=== PATIENT | male | born 1990 | race Hispanic/Latino ===

== ENCOUNTER 2018-12-15 17:16 | Inpatient (IN) | payer MEDICAID ==
[2018-12-15 17:27] VITALS: BMI 25.1
--- NOTE | 2018-12-15 18:20 | C.PDOC ---
History Of Present Illness 28 y/o male presents to the ED requesting detox from heroin. Of note patient was transferred from another institution that does not have detox units. He has no medical complaints at this time. Last heroin use was 36 hours ago. Currently patient feels he is withdrawing and he reports diffuse bodyaches. No SI or HI. <Joanna Pedraza - Last Filed: 12/15/18 18:54> History Per: Patient History/Exam Limitations: no limitations Onset/Duration Of Symptoms: Days Current Symptoms Are (Timing): Still Present Modifying Factor(s): Other (Heroin) Associated Symptoms: denies: Suicidal Thoughts, Suicidal Plan <Joanna Pedraza - Last Filed: 12/15/18 18:54> <Jett Thomas - Last Filed: 12/15/18 19:16> Time Seen by Provider: 12/15/18 17:34 Chief Complaint (Nursing): Substance Abuse Past Medical History Reviewed: Historical Data, Nursing Documentation, Vital Signs - Medical History Other PMH: Tonsillar abscess s/p I&D Family History: States: Unknown Family Hx - Social History Hx Alcohol Use: No Hx Substance Use: Yes - Immunization History Hx Tetanus Toxoid Vaccination: No Hx Influenza Vaccination: No <Joanna Pedraza - Last Filed: 12/15/18 18:54> Vital Signs: Last Vital Signs Temp 98.7 F 12/15/18 18:35 Pulse 74 12/15/18 18:35 Resp 18 12/15/18 18:35 BP 141/89 12/15/18 18:35 Pulse Ox 98 12/15/18 18:35 <Jett Thomas - Last Filed: 12/15/18 19:16> Review Of Systems Except As Marked, All Systems Reviewed And Found Negative. Constitutional: Negative for: Fever, Chills Cardiovascular: Negative for: Chest Pain, Palpitations Respiratory: Negative for: Shortness of Breath Gastrointestinal: Negative for: Vomiting, Abdominal Pain Musculoskeletal: Positive for: Other (Generalized body aches) Neurological: Negative for: Weakness, Dizziness Psych: Positive for: Withdrawal, Other (Heroin dependence). Negative for: Suicidal ideation <Joanna Pedraza - Last Filed: 12/15/18 18:54> Physical Exam - Physical Exam Appears: Non-toxic, No Acute Distress Skin: Warm, Dry, No Diaphoretic Head: Atraumatic, Normacephalic Eye(s): bilateral: Normal Inspection, PERRL, EOMI Neck: Normal ROM Chest: Symmetrical Cardiovascular: Rhythm Regular, No Murmur Respiratory: Normal Breath Sounds, No Accessory Muscle Use Gastrointestinal/Abdominal: Soft, No Tenderness, No Distention Extremity: Bilateral: Atraumatic, Normal Color And Temperature Neurological/Psych: Oriented x3 Gait: Steady <Joanna Pedraza - Last Filed: 12/15/18 18:54> ED Course And Treatment - Laboratory Results Result Diagrams: 12/15/18 18:21 12/15/18 18:21 Progress Note: 0.1 mg PO clonidine given in the ED. Labs ordered for medical clearance. 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 <Joanna Pedraza - Last Filed: 12/15/18 18:54> - Laboratory Results Result Diagrams: 12/15/18 18:21 12/15/18 18:21 Lab Results: Total Bilirubin 0.8 mg/dL (0.2-1.3) 12/15/18 18:21 AST 36 U/L (17-59) 12/15/18 18:21 ALT 59 U/L (21-72) 12/15/18 18:21 Alkaline Phosphatase 99 U/L (38-126) 12/15/18 18:21 Total Protein 8.6 g/dL (6.3-8.3) H 12/15/18 18:21 Albumin 4.4 g/dL (3.5-5.0) 12/15/18 18:21 Globulin 4.2 gm/dL (2.2-3.9) H 12/15/18 18:21 Albumin/Globulin Ratio 1.1 (1.0-2.1) 12/15/18 18:21 Urine Color Yellow (YELLOW) 12/15/18 18:21 Urine Clarity Hazy (Clear) 12/15/18 18:21 Urine pH 8.0 (5.0-8.0) 12/15/18 18:21 Ur Specific Orange 1.017 (1.003-1.030) 12/15/18 18:21 Urine Protein Negative mg/dL (NEGATIVE) 12/15/18 18:21 Urine Glucose (UA) Normal mg/dL (Normal) 12/15/18 18:21 Urine Ketones Negative mg/dL (NEGATIVE) 12/15/18 18:21 Urine Blood Negative (NEGATIVE) 12/15/18 18:21 Urine Nitrate Negative (NEGATIVE) 12/15/18 18:21 Urine Bilirubin Negative (NEGATIVE) 12/15/18 18:21 Urine Urobilinogen Normal mg/dL (0.2-1.0) 12/15/18 18:21 Ur Leukocyte Esterase Neg Mary/uL (Negative) 12/15/18 18:21 Urine WBC (Auto) 4 /hpf (0-5) 12/15/18 18:21 Urine RBC (Auto) 6 /hpf (0-3) H 12/15/18 18:21 Amorphous Sediment Moderate /ul (<OCC) H 12/15/18 18:21 <Jett Thomas - Last Filed: 12/15/18 19:16> Disposition - Disposition Disposition Time: 19:00 <Joanna Pedraza - Last Filed: 12/15/18 18:54> Discussed With Dr.: Dori Valladares Comment: accepted the pt on her service and took over the care at 7:15PM Doctor Will See Patient In The: Hospital Counseled Patient/Family Regarding: Studies Performed, Diagnosis <Jett Thomas - Last Filed: 12/15/18 19:16> - Disposition Disposition: HOSPITALIZED Condition: FAIR Forms: [facility] (Sinhala) - Clinical Impression Clinical Impression: Drug abuse, Drug dependence - PA / VARNISH COOKER / Resident Statement MD/DO has reviewed & agrees with the documentation as recorded. - Scribe Statement The provider has reviewed the documentation as recorded by the Scribshiloh Gil All medical record entries made by the Scribe were at my direction and personally dictated by me. I have reviewed the chart and agree that the record accurately reflects my personal performance of the history, physical exam, medical decision making, and the department course for this patient. I have also personally directed, reviewed, and agree with the discharge instructions and disposition. <Joanna Pedraza - Last Filed: 12/15/18 18:54> Physician Patient Turnover Patient Signed Over To: Jett Thomas Handoff Comments: pending UDS and medical clearance and detox acceptence <Joanna Pedraza - Last Filed: 12/15/18 18:54> Decision To Admit <Joanna Pedraza - Last Filed: 12/15/18 18:54> - Pt Status Changed To: Hospital Disposition Of: Inpatient - Admit Certification Admit to Inpatient:: After my assessment, the patient will require hospitalization for at least two midnights. This is because of the severity of symptoms shown, intensity of services needed, and/or the medical risk in this patient being treated as an outpatient. - InPatient: Physician Admission Certification: I certify that this patient requires 2 or more midnights of care for the following reason:: After my assessment, the patient will require hospitalization for at least two midnights. This is becaus e of the severity of symptoms shown, intensity of services needed, and/or the medical risk in this patient being treated as an outpatient. - . Bed Request Type: Detox Admitting Physician: Dori Valladares <Jett Thomas - Last Filed: 12/15/18 19:16> - . Patient Diagnosis: Drug abuse, Drug dependence
[2018-12-15 18:25] LABS: BASO # 0.1 K/uL (0.0-0.2); BASO % 0.9 % (0.0-2.0); EOS # 0.2 K/uL (0.0-0.7); EOS % 1.3 % (0.0-4.0); HEMOGLOBIN 15.7 g/dL (12.0-18.0); LYMPH # 3.8 K/uL (1.0-4.3); LYMPH % 25.7 % (20.0-40.0); MEAN CELL VOLUME 87.1 fL (80.0-94.0); MEAN CORPUSCULAR HEMOGLOBIN 30.2 pg (27.0-31.0); MEAN CORPUSCULAR HGB CONC 34.7 g/dL (33.0-37.0); MEAN PLATELET VOLUME 9.2 fL (7.2-11.7); MONO # 1.2 K/uL (0.0-0.8); NEUT # 9.4 K/uL (1.8-7.0); NEUT % 64.1 % (50.0-75.0); NRBC % 0.1 % (0.0-2.0); RBC 5.21 Mil/uL (4.40-5.90); RED CELL DISTRIBUTION WIDTH 13.2 % (11.5-14.5); WHITE BLOOD COUNT 14.8 K/uL (4.8-10.8)
[2018-12-15 18:40] LABS: URINE AMORPHOUS SEDIMENT MODERATE /ul (<OCC); URINE BILIRUBIN NEGATIVE (NEGATIVE); URINE BLOOD NEGATIVE (NEGATIVE); URINE CLARITY Hazy (Clear); URINE COLOR Yellow (YELLOW); URINE GLUCOSE (UA) NORMAL (Normal); URINE LEUKOCYTE ESTERASE NEG Leu/uL (Negative); URINE PROTEIN NEGATIVE (NEGATIVE); URINE UROBILINOGEN NORMAL mg/dL (0.2-1.0)
[2018-12-15 18:41] LABS: ALB/GLOB RATIO 1.1 (1.0-2.1); ALBUMIN 4.4 g/dL (3.5-5.0); ALT/SGPT 59 U/L (21-72); AST/SGOT 36 U/L (17-59); BLOOD UREA NITROGEN 9 mg/dL (9-20); CALCIUM 9.6 mg/dl (8.6-10.4); GFR NON-AFRICAN AMERICAN > 60
[2018-12-15 18:54] LABS: BARBITURATES, UR NEGATIVE (NEGATIVE); OPIATES, UR NEGATIVE (NEGATIVE); PHENCYCLIDINE, UR NEGATIVE (NEGATIVE)
[2018-12-15 18:56] LABS: BENZODIAZEPINES, UR POSITIVE (NEGATIVE)
[2018-12-16] MEDS ORDERED: Aluminum Hydroxide/Magnesium Hydroxide Susp (30 mL) PO PRN (08:36)
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
--- NOTE | 2018-12-17 10:24 | PCM.PYCHPN ---
Psychiatric Progress Note - Psychiatric Progress Note Patient seen today, length of contact: 17 min Patient Chief Complaint: I want detox Problems Identified/Issues Discussed: Patient seen, chart reviewed and case discussed with staff Patient is compliant with all medications, reports no side effects Symptoms are improving and still needs additional time to stabilize Patient reports racing thoughts at night with difficulty falling asleep Patient reports feelings of guilt regarding past behaviors, denies SI Patient attends groups and activities Support and psycho-education provided After care discussed Medication Change: Yes Medical Record Reviewed: Yes Mental Status Examination - Cognitive Function Orientation: Person, Place, Situation, Time Memory: Intact Attention: WNL - Mood Mood: Anxious - Affect Affect: Constricted - Speech Speech: Appropriate - Formal Thought Process Formal Thought Process: No Impairment - Suicidal Ideation Suicidal Ideation: No - Homicidal Ideation Homicidal Ideation: No Goal/Treatment Plan - Goal/Treatment Plan Need for Continued Stay: Remain at risks for inpatient hospitalization, Severe depression anxiety, Discharge may exacerbated symptoms Progress Toward Problem(s) and Goals/Treatment Plan: Taper with Methadone PRN medications, Maalox, Clonidine, Atarax, Ibuprofen, Imodium, Zofran Trazodone HS, increased from 50-->100mg All risks, benefits and treatment alternatives of medications discussed; patient understands and agrees Attend groups and activities Supportive therapy and psycho-education [place] for abstinence CBT for relapse prevention Encourage MAT Refer to rehab or IOP, and self-help groups Teach healthy lifestyle methods(diet, exercise, meditation) Smoking cessation with Nicotine patch Discussed with Dr. Jacinto Alexander, PGY-1
--- NOTE | 2018-12-17 13:50 | PCM.BM ---
<AdrianYuly fernandez Regi - Last Filed: 12/17/18 13:45> Treatment Plan Problems - Problems identified on initial assessmt Denial Date Initiated: 12/15/18 Assessment reference: NA Status: Active Defensive Coping Date Initiated: 12/15/18 Assessment reference: NA Status: Active Chronic Low Self Esteem Date Initiated: 12/15/18 Assessment reference: NA Status: Active Treatment assets and liabiliti Patient Assests: ADL independent, physically healthy Patient Liabilities: substance abuse - Milieu Protocol Maintain good personal hygiene: daily Encourage regular showers, daily Remind patient to perform daily oral care, daily Assist patient to perform ADL's Maintain personal safety: every shift Educate patient to report safety concerns to staff, every shift Monitor environment for contraband/sharps Medication safety: Monitor for expected outcome, potential side effects: every shift, Assess barriers to learning: every shift, Assess readiness for medication education: every shift Milieu Narrative: Taper with Methadone PRN medications, Maalox, Clonidine, Atarax, Ibuprofen, Imodium, Zofran Trazodone HS, increased from 50-->100mg All risks, benefits and treatment alternatives of medications discussed; patient understands and agrees Attend groups and activities Supportive therapy and psycho-education [place] for abstinence CBT for relapse prevention Encourage MAT Refer to rehab or IOP, and self-help groups Teach healthy lifestyle methods(diet, exercise, meditation) Smoking cessation with Nicotine patch Discussed with Dr. Jacinto Alexander, PGY-1 Discharge/Continuing Care - Treatment Team Participation Patient/Family/SO Statement: Taper with Methadone PRN medications, Maalox, Clonidine, Atarax, Ibuprofen, Imodium, Zofran Trazodone HS, increased from 50-->100mg All risks, benefits and treatment alternatives of medications discussed; patient understands and agrees Attend groups and activities Supportive therapy and psycho-education TN for abstinence CBT for relapse prevention Encourage MAT Refer to rehab or IOP, and self-help groups Teach healthy lifestyle methods(diet, exercise, meditation) Smoking cessation with Nicotine patch Discussed with Dr. Jacinto Alexander, PGY-1 <Suad Casey - Last Filed: 12/18/18 12:00> - Diagnosis (1) Opioid use disorder, severe, dependence Status: Acute Interventions: 12/18/18 12:00 * Assess 7x/week regarding severity of withdrawal * Educate regarding risks, benefits, side effects and alternatives of medications * Use Motivational Interviewing for abstinence * Use CBT for relapse prevention * Medication management for withdrawal symptoms * Encourage medication assisted treatment *
--- NOTE | 2018-12-18 12:00 | PCM.PYCHPN ---
Psychiatric Progress Note - Psychiatric Progress Note Patient seen today, length of contact: 17 min Patient Chief Complaint: "So so" Problems Identified/Issues Discussed: The pt is seen again, chart reviewed, and case is discussed with the team. The pt denies any side-effects from meds. Attends activities and groups, brief individual therapy provided Not ready for discharge due to ongoing symptoms and high relapse risk. After care discussed again. Medication Change: Yes (detox changes daily) Medical Record Reviewed: Yes Mental Status Examination - Cognitive Function Orientation: Person, Place, Situation, Time Memory: Intact Attention: WNL Concentration: WNL Association: WNL Fund of Knowledge: WNL - Mood Mood: Anxious - Affect Affect: Constricted - Speech Speech: Appropriate - Formal Thought Process Formal Thought Process: No Impairment - Suicidal Ideation Suicidal Ideation: No - Homicidal Ideation Homicidal Ideation: No Goal/Treatment Plan - Goal/Treatment Plan Need for Continued Stay: Remain at risks for inpatient hospitalization, Discharge may exacerbated symptoms, Severe functional impairment Progress Toward Problem(s) and Goals/Treatment Plan: Continue medications Support and psychoeducation daily Attend groups and activities daily Individual therapy After care planning by TAN and the team
--- NOTE | 2018-12-19 19:44 | PCM.PYCHPN ---
Psychiatric Progress Note - Psychiatric Progress Note Patient seen today, length of contact: 18 min Patient Chief Complaint: "I am still having some withdrawal symptoms" Problems Identified/Issues Discussed: The pt is seen, chart reviewed, case is discussed with staff. The pt is compliant with medications and reports no side-effects. Symptoms are improving but needs more time to stabilize and to avoid relapse. Pt attends groups and activities. Support given, psycho-education provided. After care discussed. Medication Change: No Medical Record Reviewed: Yes Mental Status Examination - Cognitive Function Orientation: Person, Place, Situation, Time Memory: Intact Attention: WNL Concentration: WNL Decription of patient's judgement and insights: Fair - Mood Mood: Anxious - Affect Affect: Constricted - Speech Speech: Appropriate - Formal Thought Process Formal Thought Process: No Impairment - Suicidal Ideation Suicidal Ideation: No - Homicidal Ideation Homicidal Ideation: No Goal/Treatment Plan - Goal/Treatment Plan Need for Continued Stay: Remain at risks for inpatient hospitalization, Severe depression anxiety, Discharge may exacerbated symptoms Estimated Date of D/C: 12/21/18
[2018-12-21 06:11] VITALS: RESP 20; O2SAT 98
--- NOTE | 2018-12-21 08:39 | PCM.PYCHDC ---
Mental Status Examination - Mental Status Examination Orientation: Person Discharge Summary - Discharge Note Consultations:: List each consultation separately and include: 1. Reason for request. 2. Findings. 3. Follow-up Summary of Hospital Course include:: 1. Description of specific treatment plan utilized for patients during their course of treatmen. 2. Summarize the time- course for resolution of acute symptoms and/or regressed behaviors. 3. Describe issues identified and worked on during hospitalization. 4. Describe medication utilized. 5. Describe medical problems identified and treated. 6. Reassessment of suicide risk Summary of Hospital Course: He is going to [facility] in [place]. - Diagnosis (1) Opioid use disorder, severe, dependence Current Visit: Yes Status: Acute - Final Diagnosis (DSM 5) Condition upon Discharge: FAIR Disposition: HOME/ ROUTINE Follow-up Treatment Plan: Continue medications Support and psychoeducation daily Attend groups and activities daily Individual therapy After care planning by TAN and the team Prescriptions/Medication Reconciliation: hydrOXYzine HCl [Atarax] 50 mg PO HS PRN #30 tab PRN Reason: Anxiety traZODone [Desyrel] 100 mg PO HS PRN #30 tab PRN Reason: Insomnia
[2018-12-21 09:33] VITALS: BP 133/85; PULSE 104; TEMP 97.6
== END 2018-12-21 09:45 | disposition home or self-care (01) | DRG 773 ==
LOC: C.ER 17:16 → C.7D 19:14
PROVIDERS: ADMIT Psychiatry & Neurology Psychiatry; ATTEND Psychiatry & Neurology Psychiatry
PROC: GZ56ZZZ Individual Psychotherapy, Supportive (ICD-10-PCS; principal; 2018-12-15)
DX: F11.23 Opioid dependence with withdrawal (principal); F14.10 Cocaine abuse, uncomplicated; F12.10 Cannabis abuse, uncomplicated; F43.10 Post-traumatic stress disorder, unspecified